=== PATIENT | female | born 1985 | race American Indian/Alaskan Native ===

== ENCOUNTER 2018-06-19 09:40 | Emergency (ER) | payer SELFPAY ==
[2018-06-19] MEDS ORDERED: MORPHINE IV ONE (10:06)
[2018-06-19] MEDS ORDERED: NACL 0.9% 1000 ML 1,000 ML IV ONE (10:06)
--- NOTE | 2018-06-19 10:08 | Emergency Department Report ---
HPI - General Chief Complaint: Vaginal Bleeding Time Seen by Provider: 06/19/18 10:01 - [facility] HPI: 33-year-old -[place] Citizen female presents to the emergency department with complaint of lower abdominal/pelvic pain, lower back pain, and vaginal bleeding, that started a few hours ago this morning. Patient says that she is per a home test. Her last menstrual cycle was 04/16/18. With this she is with 2 previous abortions. She does not have any past medical history otherwise. She does not have a primary care physician or METAL CNC OPERATOR. She has not taken anything for her symptoms prior to arrival. ED Past Medical Hx - Past Medical History Previous Medical History?: No - Surgical History Additional Surgical History: x 2 - Social History Smoking Status: Unknown if ever smoked Substance Use Type: None - Medications Home Medications: Home Medications Medication Instructions Recorded Confirmed Last Taken Type Acetaminophen/Codeine [Tylenol 1 tab PO Q6H PRN #10 tab 06/19/18 Unknown Rx /Codeine # 3 tab] ED Review of Systems ROS: Stated complaint: POSS MISCARRIAGE Other details as noted in HPI Comment: All other systems reviewed and negative Constitutional: denies: chills, fever Eyes: denies: eye pain, eye discharge, vision change ENT: denies: ear pain, throat pain Respiratory: denies: cough, shortness of breath, wheezing Cardiovascular: denies: chest pain, palpitations Gastrointestinal: abdominal pain. denies: nausea, vomiting Genitourinary: other (vaginal bleeding). denies: dysuria, discharge Musculoskeletal: back pain. denies: arthralgia Skin: denies: rash, lesions Neurological: denies: headache, weakness Physical Exam - Physical Exam Vital Signs: Vital Signs 06/19/18 09:59 Temperature 98.2 F Pulse Rate 77 Respiratory 19 Rate Blood Pressure 99/64 O2 Sat by Pulse 100 Oximetry Physical Exam: GENERAL: The patient is well-developed well-nourished. HEENT: Normocephalic. Atraumatic. Patient has moist mucous membranes. EYES: Extraocular motions are intact. Pupils are equal and reactive to light bilaterally. NECK: Supple. Trachea is midline. CHEST/LUNGS: Clear to auscultation. There is no respiratory distress noted. HEART/CARDIOVASCULAR: Regular. There is no tachycardia. There is no obvious murmur. ABDOMEN: Abdomen is soft. There is some tenderness to palpation to the lower abdomen and pelvis. No guarding. Patient has normal bowel sounds. There is no abdominal distention. SKIN: Skin is warm and dry. NEURO: The patient is awake, alert, and oriented. The patient is cooperative. The patient has no focal neurologic deficits. The patient has normal speech. MUSCULOSKELETAL: There is no tenderness or deformity. There is no limitation range of motion. There is no evidence of acute injury. Muscle strength 5 out of 5 upper and lower extremities bilaterally. BACK: No reproducible tenderness to palpation to the midline or paraspinal lumbar back. : Deferred ED Course Vital Signs 06/19/18 09:59 Temperature 98.2 F Pulse Rate 77 Respiratory 19 Rate Blood Pressure 99/64 O2 Sat by Pulse 100 Oximetry - Consultations Consultation #1: 06/19/18 13:18 I spoke with the METAL CNC OPERATOR on-call, Dr. Kala Miles, who listened to the patient's presentation including lab values and imaging. Dr. Miles feels the patient is safe for discharge home and can follow up in the office next week for a repeat hormone level and possible ultrasound. ED Medical Decision Making - Lab Data Result diagrams: 06/19/18 10:10 06/19/18 10:16 - Radiology Data Radiology results: report reviewed ULTRASOUND OB LESS THAN 14 WEEKS FETUS ULTRASOUND OB TRANSVAGINAL History: Bleeding during , vaginal bleeding. Technique: Transabdominal and transvaginal ultrasound images. Findings: Beta hCG level measures 4961. The uterus is retroflexed and measures 12 x 5 x 6 cm. No obvious uterine mass. The endometrium is complex and thickened measuring 1.6 cm. No intrauterine gestational sac is identified. The ovaries are normal size, contour and echotexture. No evidence for adnexal cyst or mass. IMPRESSION: No intrauterine is identified at this time. The endometrium is thickened and complex measuring 1.6 cm. Spontaneous with retained products of conception could be considered. Please note that an ectopic is not entirely excluded at this time. Please correlate with the patient's clinical history and presentation. Transcribed By: TTR Dictated By: FORTUNATO MOYER JR, MD Electronically Authenticated By: FORTUNATO MOYER JR, MD Signed Date/Time: 06/19/18 1203 - Medical Decision Making Patient presents with a positive home test followed by some pain and vaginal bleeding starting this morning. Beta hCG was about 4500. Ultrasound shows no identification of any intrauterine . There is a thickened endometrium. Normal-appearing ovaries on ultrasound. The patient has a positive blood and does not require any RhoGAM shot. METAL CNC OPERATOR was contacted and feel that she is safe for discharge home with outpatient follow-up. Patient was given a referral for the METAL CNC OPERATOR superintendent institution and a small prescription for some pain medication. She understands to return to the emergency Department with any worsening of her symptoms or any acute distress. - Differential Diagnosis , threatened miscarriage, spontaneous miscarriage, fibroids Critical Care Time: No Critical care attestation.: If time is entered above; I have spent that time in minutes in the direct care of this critically ill patient, excluding procedure time. ED Disposition Clinical Impression: Threatened miscarriage Disposition: DC- TO HOME OR SELFCARE Is pt being admited?: No Condition: Stable Instructions: Threatened Miscarriage (ED) Additional Instructions: Please follow up with the METAL CNC OPERATOR early next week for a repeat hormone level and possibly ultrasound. Return to the emergency department with any worsening of her symptoms, increased vaginal bleeding, or with any acute distress. You have been prescribed a medication that can be sedating. Therefore, this medication cannot be taken prior to driving, working, being responsible for children, and cannot be mixed with alcohol of any quantity. Prescriptions: Acetaminophen/Codeine [Tylenol /Codeine # 3 tab] 1 tab PO Q6H PRN #10 tab PRN Reason: Pain , Severe (7-10) Referrals: KALA MILES MD [Staff Physician] - 3-5 Days Forms: Work/School Release Form(ED) Time of Disposition: 12:40
[2018-06-19 10:27] LABS: Basophils % (Auto) 0.2 % (0.0-1.8); Eosinophils # (Auto) 0.1 K/mm3 (0.0-0.4); Eosinophils % (Auto) 0.5 % (0.0-4.3); Hematocrit 36.4 % (30.3-42.9); Hemoglobin 12.2 gm/dl (10.1-14.3); Lymphocytes # (Auto) 1.4 K/mm3 (1.2-5.4); Lymphocytes % (Auto) 8.8 % (13.4-35.0); Mean Corpuscular HGB Conc 33 % (30-34); Mean Corpuscular Volume 98 fl (79-97); Monocytes # (Auto) 0.9 K/mm3 (0.0-0.8); Monocytes % (Auto) 5.7 % (0.0-7.3); Platelet Count 254 K/mm3 (140-440); Red Blood Count 3.73 M/mm3 (3.65-5.03); Red Cell Distribution Width 15.5 % (13.2-15.2)
[2018-06-19 10:44] LABS: BUN/Creatinine Ratio 16; Blood Urea Nitrogen 8 mg/dL (7-17); Calcium 8.6 mg/dL (8.4-10.2); Hemolysis Index 24
--- NOTE | 2018-06-19 12:06 | Ultrasound Report ---
ULTRASOUND OB LESS THAN 14 WEEKS FETUS ULTRASOUND OB TRANSVAGINAL History: Bleeding during , vaginal bleeding. Technique: Transabdominal and transvaginal ultrasound images. Findings: Beta hCG level measures 4961. The uterus is retroflexed and measures 12 x 5 x 6 cm. No obvious uterine mass. The endometrium is complex and thickened measuring 1.6 cm. No intrauterine gestational sac is identified. The ovaries are normal size, contour and echotexture. No evidence for adnexal cyst or mass. IMPRESSION: No intrauterine is identified at this time. The endometrium is thickened and complex measuring 1.6 cm. Spontaneous with retained products of conception could be considered. Please note that an ectopic is not entirely excluded at this time. Please correlate with the patient's clinical history and presentation.
[2018-06-19 13:20] VITALS: BP 108/67
== END 2018-06-19 13:22 | disposition home or self-care (01) ==
LOC: ED 09:40
DX: O20.0 Threatened abortion (principal); Z3A.08 8 weeks gestation of pregnancy
CPT/HCPCS: 36415; 76801; 76817; 80048; 84702; 85025; 86850; 86900; 86901; 96374; 99285; J2270; J7030